=== PATIENT | male | born 1990 | race African-American/Black ===

== ENCOUNTER 2020-09-08 01:14 | Emergency (ER) | payer SELFPAY ==
[~2020-09-08] VITALS: Ht 170.2 cm; Wt 85.0 kg
[2020-09-08 01:29] VITALS: BP 130/85
[2020-09-08] MEDS ORDERED: TETANUS, DIPHTHERIA, PERTUSSIS VAC/PF 0.5ML (>7YR OLD) IM ONE (05:30)
== END 2020-09-08 05:43 | disposition home or self-care (01) ==
LOC: ER 01:14
DX: S01.81XA Laceration without foreign body of other part of head, initial encounter (principal); Y09 Assault by unspecified means; Y93.89 Activity, other specified; Y92.89 Other specified places as the place of occurrence of the external cause; Y99.8 Other external cause status
CPT/HCPCS: 99283